=== PATIENT | male | born 1950 | race Caucasian/White ===

== ENCOUNTER 2017-04-10 12:21 | Inpatient (IN) | payer MEDICARE, BC ==
[~2017-04-10] VITALS: Ht 180.3 cm; Wt 131.1 kg
[~2017-04-10 12:21] MED LIST: ACET500; CIPR500; META800; OXYACE5T
[2017-04-10] MEDS ORDERED: WARF10 PO (15:09)
[2017-04-10] MEDS ORDERED: WARF5 PO (15:10)
[2017-04-10] MEDS ORDERED: Prozac20 MG PO (15:21)
[2017-04-10] MEDS ORDERED: CARV25 PO (15:22)
[2017-04-10] MEDS ORDERED: LISI20 PO (15:22)
[2017-04-10] MEDS ORDERED: FURO20 PO (15:22)
[2017-04-10] MEDS ORDERED: LOVA40 PO (15:22)
[2017-04-10] MEDS ORDERED: Hydrocodone-Ap1 EA20 PO (15:23)
[2017-04-10] MEDS ORDERED: Lisinopril2.5 MG PO (15:24)
[2017-04-10] MEDS ORDERED: SPIR25 PO (15:25)
[2017-04-10] MEDS ORDERED: ASPI81CH PO (15:25)
[2017-04-10] MEDS ORDERED: FINA5 PO (15:25)
[2017-04-10] MEDS ORDERED: Vitamin C100 M1 PO (15:26)
[2017-04-10] MEDS ORDERED: FISH OIL 1,2001 EAC4 PO (15:27)
[2017-04-10] MEDS ORDERED: VITAMIN B PO (15:28)
[2017-04-10] MEDS ORDERED: Hair, Skin & N1 EACH PO (15:28)
[2017-04-10] MEDS ORDERED: [UNRECOGNIZED DRUG - OTHER] PO (15:29)
[2017-04-10] MEDS ORDERED: Vitamin B Comple1 EA PO (15:29)
[2017-05-07] MEDS ORDERED: ENOX100I SC (11:47)
[2017-05-07 15:11] LABS: International Normalized Ratio 1.09; Prothrombin Time Results 11.4 Sec (9.7-11.5)
[2017-05-08 05:34] LABS: BASOPHILS ABSOLUTE AUTO 0.09 K/mm3 (0.00-0.23); BASOPHILS PERCENT AUTO 1 % (0-2); EOSINOPHILS ABSOLUTE AUTO 0.35 K/mm3 (0.00-0.68); EOSINOPHILS PERCENT AUTO 2 % (0-6); Hematocrit 33.5 % (37.0-53.0); Hemoglobin 10.8 g/dL (13.5-17.5); IMMATURE GRAN ABSOLUTE AUTO 0.09 K/mm3 (0.00-0.10); IMMATURE GRAN PERCENT AUTO 1 % (0-1); LYMPHOCYTES ABSOLUTE AUTO 1.54 K/mm3 (0.84-5.20); LYMPHOCYTES PERCENT AUTO 10 % (21-46); MONOCYTES ABSOLUTE AUTO 1.42 K/mm3 (0.16-1.47); MONOCYTES PERCENT AUTO 9 % (4-13); Mean Corpuscular HGB 31.6 pg (26.0-34.0); Mean Corpuscular HGB Conc 32.2 g/dL (31.5-36.5); Mean Corpuscular Volume 98 fL (80-100); Mean Platelet Volume 10.6 fL (9.1-12.4); NEUTROPHILS ABSOLUTE AUTO 12.28 K/mm3 (1.96-9.15); NEUTROPHILS PERCENT AUTO 78 % (41-73); Platelet Count 201 K/mm3 (150-400); RDW Coefficient Variation 12.6 % (11.7-14.2); Red Blood Cell Count 3.42 M/mm3 (4.30-5.90); White Blood Cell Count 15.77 K/mm3 (4.00-11.30)
[2017-05-08 05:48] LABS: International Normalized Ratio 1.09; Prothrombin Time Results 11.4 Sec (9.7-11.5)
[2017-05-08 05:50] LABS: Anion Gap 8 mmol/L (6-16); Blood Urea Nitrogen 17 mg/dL (8-24); CO2, Blood 29 mmol/L (21-32); Calcium, Blood 8.2 mg/dL (8.5-10.1); Chloride, Blood 103 mmol/L (98-108); Creatinine, Blood 0.85 mg/dL (0.60-1.20); Glomerular Filtration Rate >60 (60-); Glucose, Blood 102 mg/dL (70-99); Magnesium, Blood 1.9 mg/dL (1.6-2.4); Potassium, Blood 3.7 mmol/L (3.5-5.5); Sodium, Blood 140 mmol/L (136-145)
[2017-05-08] MEDS ORDERED: OXYC5 PO (14:55)
[2018-02-13] MEDS ORDERED: Prozac40 MG PO (11:14)
[2018-02-13] MEDS ORDERED: Multivitamin1 EAC1 PO (11:17)
== END 2017-05-08 15:27 | disposition home or self-care (01) | DRG 470 ==
LOC: SURS 05-07 11:03 → PRE IP 05-07 13:30 → SURS 05-07 15:14
PROVIDERS: Orthopaedic Surgery
PROC: 0SRC0J9 Replacement of Right Knee Joint with Synthetic Substitute, Cemented, Open Approach (ICD-10-PCS; principal; 2017-05-07 13:30)
DX: M17.11 Unilateral primary osteoarthritis, right knee (principal); E66.01 Morbid (severe) obesity due to excess calories; Z68.41 Body mass index [BMI] 40.0-44.9, adult; F17.210 Nicotine dependence, cigarettes, uncomplicated; Z79.01 Long term (current) use of anticoagulants; Z79.82 Long term (current) use of aspirin; Z79.899 Other long term (current) drug therapy
CPT/HCPCS: 36415; 73560-RT; 80048; 82565; 82947; 83735; 85025; 85610; 85730; 88300; 97110; 97116; 97161; 97530; C1713; C1776; G8978; G8979; J0171; J0690; J0735; J1170; J1650; J1885; J2250; J2795; J3010; J7120

== ENCOUNTER → 2018-08-04 | Outpatient (CLI) | payer MEDICARE, BC ==
[~2018-08-04] MED LIST changes: +ASPI81CH PO; +CARV25 PO; +ENOX100I SC; +FINA5 PO; +FISH OIL 1,2001 EAC4 PO; +FURO20 PO; +Hair, Skin & N1 EACH PO; +Hydrocodone-Ap1 EA20 PO; +LISI20 PO; +LOVA40 PO; +Lisinopril2.5 MG PO; +Multivitamin1 EAC1 PO; +OXYC5 PO; +Prozac20 MG PO; +Prozac40 MG PO; +SPIR25 PO; +VITAMIN B PO; +Vitamin B Comple1 EA PO; +Vitamin C100 M1 PO; +WARF10 PO; +WARF5 PO; +[UNRECOGNIZED DRUG - OTHER] PO
[2018-08-04 16:19] LABS: BASOPHILS ABSOLUTE AUTO 0.11 K/mm3 (0.00-0.23); BASOPHILS PERCENT AUTO 1 % (0-2); EOSINOPHILS ABSOLUTE AUTO 0.36 K/mm3 (0.00-0.68); EOSINOPHILS PERCENT AUTO 4 % (0-6); Hematocrit 45.3 % (37.0-53.0); Hemoglobin 14.4 g/dL (13.5-17.5); IMMATURE GRAN ABSOLUTE AUTO 0.07 K/mm3 (0.00-0.10); IMMATURE GRAN PERCENT AUTO 1 % (0-1); LYMPHOCYTES ABSOLUTE AUTO 1.71 K/mm3 (0.84-5.20); LYMPHOCYTES PERCENT AUTO 18 % (21-46); MONOCYTES PERCENT AUTO 6 % (4-13); Mean Corpuscular HGB 30.5 pg (26.0-34.0); Mean Corpuscular HGB Conc 31.8 g/dL (31.5-36.5); Mean Corpuscular Volume 96 fL (80-100); Mean Platelet Volume 10.3 fL (9.1-12.4); NEUTROPHILS ABSOLUTE AUTO 6.74 K/mm3 (1.96-9.15); NEUTROPHILS PERCENT AUTO 70 % (41-73); Platelet Count 228 K/mm3 (150-400); RDW Coefficient Variation 15.7 % (11.7-14.2); RDW Standard Deviation 55.4 fL (35.1-46.3); Red Blood Cell Count 4.72 M/mm3 (4.30-5.90); White Blood Cell Count 9.59 K/mm3 (4.00-11.30)
[2018-08-04 17:10] LABS: Anion Gap 4 mmol/L (6-16); Blood Urea Nitrogen 17 mg/dL (8-24); Bun/Creatinine Ratio 14.8 (12.0-20.0); CO2, Blood 35 mmol/L (21-32); Chloride, Blood 100 mmol/L (98-108); Creatinine, Blood 1.15 mg/dL (0.60-1.20); Glomerular Filtration Rate >60 (60-); Glucose, Blood 180 mg/dL (70-99); Magnesium, Blood 1.7 mg/dL (1.6-2.4); Potassium, Blood 4.3 mmol/L (3.5-5.5); Sodium, Blood 139 mmol/L (136-145)
[2018-08-04 18:19] LABS: International Normalized Ratio 2.84; Prothrombin Time Results 27.4 Sec (9.7-11.5)
== END | disposition home or self-care (01) ==
LOC: LAB EV 16:06 → LAB SHORT 16:06
PROVIDERS: Internal Medicine Cardiovascular Disease
DX: I48.4 Atypical atrial flutter (principal)
CPT/HCPCS: 80048; 83735; 85025; 85610

== ENCOUNTER 2018-08-05 06:54 | Day surgery (SDC) | payer MEDICARE, BC ==
[~2018-08-05] VITALS: Ht 182.9 cm; Wt 90.9 kg
== END 2018-08-05 10:30 | disposition home or self-care (01) ==
LOC: MHTC 06:54
DX: I48.4 Atypical atrial flutter (principal); I45.2 Bifascicular block; E11.51 Type 2 diabetes mellitus with diabetic peripheral angiopathy without gangrene; F17.210 Nicotine dependence, cigarettes, uncomplicated; Z86.718 Personal history of other venous thrombosis and embolism; Z79.899 Other long term (current) drug therapy; Z79.01 Long term (current) use of anticoagulants; Z79.82 Long term (current) use of aspirin
CPT/HCPCS: 92960; 93005; 93010; J0282; J2704; J7030

== ENCOUNTER → 2021-09-20 | Outpatient (CLI) | payer MEDICARE, BC | LOC: PLD 13:48 → LAB SHORT 13:48 | DX: D48.5 Neoplasm of uncertain behavior of skin (principal) | CPT/HCPCS: 88341; 88342 ==

== ENCOUNTER → 2023-05-25 | Outpatient (CLI) | payer MEDICARE, BC ==
[2023-05-25 15:02] LABS: BASOPHILS PERCENT AUTO 1 % (0-2); EOSINOPHILS ABSOLUTE AUTO 0.41 K/mm3 (0.00-0.68); EOSINOPHILS PERCENT AUTO 4 % (0-6); Hematocrit 44.3 % (37.0-53.0); IMMATURE GRAN ABSOLUTE AUTO 0.04 K/mm3 (0.00-0.10); IMMATURE GRAN PERCENT AUTO 0 % (0-1); LYMPHOCYTES ABSOLUTE AUTO 1.41 K/mm3 (0.84-5.20); LYMPHOCYTES PERCENT AUTO 13 % (21-46); MONOCYTES ABSOLUTE AUTO 1.14 K/mm3 (0.16-1.47); MONOCYTES PERCENT AUTO 11 % (4-13); Mean Corpuscular HGB 32.9 pg (26.0-34.0); Mean Corpuscular HGB Conc 31.6 g/dL (31.5-36.5); Mean Corpuscular Volume 104 fL (80-100); Mean Platelet Volume 10.5 fL (9.1-12.4); NEUTROPHILS ABSOLUTE AUTO 7.55 K/mm3 (1.96-9.15); NEUTROPHILS PERCENT AUTO 71 % (41-73); Platelet Count 199 K/mm3 (150-400); RDW Coefficient Variation 12.3 % (11.7-14.2); Red Blood Cell Count 4.26 M/mm3 (4.30-5.90); White Blood Cell Count 10.65 K/mm3 (4.00-11.30)
[2023-05-25 16:15] LABS: Albumin, Blood 3.5 g/dL (3.4-5.0); Albumin/Globulin Ratio 0.9 (0.8-1.8); Bilirubin, Total 0.4 mg/dL (0.1-1.0); Bun/Creatinine Ratio 21.5 (12.0-20.0); Calcium, Blood 9.3 mg/dL (8.5-10.1); Creatinine, Blood 0.74 mg/dL (0.60-1.20); Globulin, Blood 3.9 g/dL (2.2-4.0); Potassium, Blood 3.9 mmol/L (3.5-5.5); Thyroid Stimulating Hormone 1.88 uIU/mL (0.360-4.800); Total Protein, Blood 7.4 g/dL (6.4-8.2)
== END | disposition home or self-care (01) ==
LOC: LAB SHORT 14:22 → LAB 14:22
PROVIDERS: Internal Medicine
DX: E11.42 Type 2 diabetes mellitus with diabetic polyneuropathy (principal); I48.20 Chronic atrial fibrillation, unspecified
CPT/HCPCS: 36415; 36416; 80053; 83036; 84443; 85025; 85610

== ENCOUNTER 2024-01-01 17:29 | Emergency (ER) | payer MEDICARE, BC ==
[~2024-01-01] VITALS: Ht 188 cm; Wt 131.5 kg
[~2024-01-01 17:29] MED LIST changes: +ALBU2.5V5 INH; +BUPR150ER PO; +CEFP200 PO; +DULERA 200 MCG-13 GM INH; +Diltiazem ER60 MG PO; +ENOXAPARIN150 MG/1 M SC; +PRAZ1 PO; +PRED20 PO
[2024-01-01 18:43] LABS: BASOPHILS ABSOLUTE AUTO 0.09 K/mm3 (0.00-0.23); BASOPHILS PERCENT AUTO 1 % (0-2); EOSINOPHILS ABSOLUTE AUTO 0.47 K/mm3 (0.00-0.68); EOSINOPHILS PERCENT AUTO 5 % (0-6); Hematocrit 35.5 % (37.0-53.0); Hemoglobin 10.9 g/dL (13.5-17.5); IMMATURE GRAN ABSOLUTE AUTO 0.08 K/mm3 (0.00-0.10); IMMATURE GRAN PERCENT AUTO 1 % (0-1); LYMPHOCYTES ABSOLUTE AUTO 1.08 K/mm3 (0.84-5.20); LYMPHOCYTES PERCENT AUTO 11 % (21-46); MONOCYTES ABSOLUTE AUTO 0.94 K/mm3 (0.16-1.47); MONOCYTES PERCENT AUTO 9 % (4-13); Mean Corpuscular HGB 29.1 pg (26.0-34.0); Mean Corpuscular HGB Conc 30.7 g/dL (31.5-36.5); Mean Corpuscular Volume 95 fL (80-100); Mean Platelet Volume 10.2 fL (9.1-12.4); NEUTROPHILS ABSOLUTE AUTO 7.31 K/mm3 (1.96-9.15); NEUTROPHILS PERCENT AUTO 73 % (41-73); Platelet Count 257 K/mm3 (150-400); RDW Coefficient Variation 14.6 % (11.7-14.2); RDW Standard Deviation 51.3 fL (35.1-46.3); Red Blood Cell Count 3.74 M/mm3 (4.30-5.90); White Blood Cell Count 9.97 K/mm3 (4.00-11.30)
[2024-01-01 19:10] LABS: Albumin, Blood 3.1 g/dL (3.4-5.0); Albumin/Globulin Ratio 0.7 (0.8-1.8); Bilirubin, Total 0.4 mg/dL (0.1-1.0); Bun/Creatinine Ratio 20.3 (12.0-20.0); Calcium, Blood 8.8 mg/dL (8.5-10.1); Creatinine, Blood 0.89 mg/dL (0.60-1.20); Globulin, Blood 4.4 g/dL (2.2-4.0); Potassium, Blood 4.9 mmol/L (3.5-5.5); Total Protein, Blood 7.5 g/dL (6.4-8.2)
[2024-01-01 22:30] VITALS: BP 109/62
== END 2024-01-01 22:42 | disposition home or self-care (01) ==
LOC: ER 17:29
PROVIDERS: Emergency Medicine
DX: J96.11 Chronic respiratory failure with hypoxia (principal); E11.40 Type 2 diabetes mellitus with diabetic neuropathy, unspecified; J44.9 Chronic obstructive pulmonary disease, unspecified; F43.10 Post-traumatic stress disorder, unspecified; I48.91 Unspecified atrial fibrillation; Z99.81 Dependence on supplemental oxygen; Z86.79 Personal history of other diseases of the circulatory system; Z79.82 Long term (current) use of aspirin; Z79.01 Long term (current) use of anticoagulants; Z79.52 Long term (current) use of systemic steroids; Z79.899 Other long term (current) drug therapy
CPT/HCPCS: 71046; 80053; 83880; 84484; 85025; 93005; 93010; 99285-25

== ENCOUNTER → 2025-03-10 | Outpatient (CLI) | payer MEDICARE, BC ==
[2025-03-11 04:19] LABS: Creatinine, Urine Random 61.4 mg/dL (27.00-270.00); Microalb/Creat Ratio UR, Rand 104.56 mg/g (0.000-30.000); Microalbumin, Random Urine 64.2 mg/L (0.000-20.000)
== END | disposition home or self-care (01) ==
LOC: LAB SHORT 14:10 → LAB 14:10
PROVIDERS: Internal Medicine
DX: E11.42 Type 2 diabetes mellitus with diabetic polyneuropathy (principal)
CPT/HCPCS: 82043; 82570

== ENCOUNTER 2025-03-28 12:06 | Inpatient (IN) | payer MEDICARE, BC ==
[~2025-03-28] VITALS: Ht 188 cm; Wt 134.8 kg
[2025-03-28] MEDS ORDERED: Morphine Sulfate 4 MG/1 ML Injection IV ONE (12:55)
[2025-03-28] MEDS ORDERED: Ondansetron HCl 2 MG / ML 2ML Vial IV ONE (12:55)
[2025-03-28 13:21] LABS: BASOPHILS ABSOLUTE AUTO 0.08 K/mm3 (0.00-0.23); BASOPHILS PERCENT AUTO 1 % (0-2); EOSINOPHILS ABSOLUTE AUTO 0.05 K/mm3 (0.00-0.68); EOSINOPHILS PERCENT AUTO 0 % (0-6); Hematocrit 28.4 % (37.0-53.0); Hemoglobin 8.4 g/dL (13.5-17.5); IMMATURE GRAN ABSOLUTE AUTO 0.12 K/mm3 (0.00-0.10); IMMATURE GRAN PERCENT AUTO 1 % (0-1); LYMPHOCYTES ABSOLUTE AUTO 0.75 K/mm3 (0.84-5.20); LYMPHOCYTES PERCENT AUTO 6 % (21-46); MONOCYTES ABSOLUTE AUTO 0.99 K/mm3 (0.16-1.47); MONOCYTES PERCENT AUTO 7 % (4-13); Mean Corpuscular HGB Conc 29.6 g/dL (31.5-36.5); Mean Corpuscular Volume 89 fL (80-100); NEUTROPHILS ABSOLUTE AUTO 11.72 K/mm3 (1.96-9.15); NEUTROPHILS PERCENT AUTO 85 % (41-73); NRBC ABSOLUTE 0.00 K/mm3 (0.00-0.02); NRBC Auto 0.0 /100 WBC (0.0-0.2); Platelet Count 211 K/mm3 (150-400); RDW Coefficient Variation 16.5 % (11.7-14.2); RDW Standard Deviation 53.3 fL (35.1-46.3)
[2025-03-28 13:30] LABS: Prothrombin Time Results 27.1 Sec (9.7-11.5)
[2025-03-28 13:41] LABS: Alanine Aminotransfer (ALT/SGP 15.0 U/L (12-78); Albumin, Blood 3.2 g/dL (3.4-5.0); Albumin/Globulin Ratio 0.8 (0.8-1.8); Anion Gap 6.0 mmol/L (3-11); Aspartate Aminotrans (AST/SGOT 21.0 U/L (12-37); Bilirubin, Total 0.6 mg/dL (0.1-1.0); Blood Urea Nitrogen 17.0 mg/dL (8-24); CO2, Blood 36.0 mmol/L (21-32); Calcium, Blood 8.7 mg/dL (8.5-10.1); Chloride, Blood 95.0 mmol/L (98-108); Creatinine, Blood 0.81 mg/dL (0.60-1.20); Globulin, Blood 3.8 g/dL (2.2-4.0); Glucose, Blood 115.0 mg/dL (70-99); Potassium, Blood 3.6 mmol/L (3.5-5.5); Sodium, Blood 133.0 mmol/L (136-145); Total Protein, Blood 7.0 g/dL (6.4-8.2)
[2025-03-28] MEDS ORDERED: HYDROmorphone HCl/Pf 1MG SYR IV ONE ×2 (14:55→19:40)
[2025-03-28] MEDS ORDERED: LORazepam 2 MG/ML 1ML Injection IV ONE (16:15)
[2025-03-28 17:13] LABS: Source, Urine Voided
[2025-03-28 17:16] LABS: Bilirubin, Urine Neg (Neg); Color, Urine Yellow (P-Yellow); Glucose Qualitative, Urine 3+ (Neg); Ketones, Urine 1+ (Neg); Leukocyte Esterase, Urine Neg (Neg); Protein, Urine 2+ (Neg); Specific Gravity, Urine 1.020 (1.003-1.022); Urobilinogen, Urine NORM (Normal)
[2025-03-28 17:22] LABS: Red Blood Cells, Urine 0-2 /hpf (0-2); White Blood Cells, Urine 0-2 /hpf (0-5)
[2025-03-28] MEDS ORDERED: Ketamine HCl 100 MG / ML 5ML Vial IV ONE (18:20)
[2025-03-28] MEDS ORDERED: HYDROmorphone HCl/Pf 1MG SYR IV PRN ×2 (22:15→23:30)
[2025-03-28] MEDS ORDERED: Ketorolac Tromethamine 30mg Vial IV PRN (23:25)
[2025-03-28] MEDS ORDERED: Ipratropium/Albuterol SulF 2.5-0.5MG/3 ML Amp INH PRN (23:25)
[2025-03-28] MEDS ORDERED: Ondansetron HCl 2 MG / ML 2ML Vial IV PRN (23:25)
[2025-03-28] MEDS ORDERED: FentaNYL Citrate 50 MCG/ML 2 ML Injection IV PRN (23:30)
[2025-03-28] MEDS ORDERED: FLU VACC TS2025(65UP)/MF59C/PF 45 MCG/0.5 ML SYRINGE IM SCH (23:30)
[2025-03-28 23:57] LABS: Magnesium, Blood 2.3 mg/dL (1.6-2.4); Phosphorus, Blood 3.2 mg/dL (2.5-4.9)
[2025-03-29] VITALS (8 sets, daily range): BP systolic 103–139; BP diastolic 63–95
[2025-03-29] MEDS ORDERED: Dexamethasone Sodium Phosphate 4 MG/ML 5ML VIAL IV ONE
[2025-03-29 00:11] LABS: Prothrombin Time Results 29.8 Sec (9.7-11.5)
[2025-03-29] MEDS ORDERED: Dexamethasone Sod Phos 10 MG/ML 1ML VIAL IV ONE (00:15)
[2025-03-29] MEDS ORDERED: BEVESPI AEROS10.7 G1 UD (01:43)
[2025-03-29] MEDS ORDERED: DAPAGLIFLOZIN10 MG PO (01:45)
[2025-03-29] MEDS ORDERED: KETO15TC TOP (01:47)
[2025-03-29] MEDS ORDERED: Norco 10-325 T1 EACH PO (01:47)
[2025-03-29] MEDS ORDERED: OXYM.05NI (01:48)
[2025-03-29] MEDS ORDERED: NASONEX 24HR AL17 ML (01:50)
[2025-03-29] MEDS ORDERED: OMEP20ER PO (01:51)
[2025-03-29] MEDS ORDERED: TORSE20 PO (01:52)
[2025-03-29 04:21] LABS: BASOPHILS ABSOLUTE AUTO 0.05 K/mm3 (0.00-0.23); BASOPHILS PERCENT AUTO 0 % (0-2); EOSINOPHILS ABSOLUTE AUTO 0.02 K/mm3 (0.00-0.68); EOSINOPHILS PERCENT AUTO 0 % (0-6); Hematocrit 28.5 % (37.0-53.0); Hemoglobin 8.3 g/dL (13.5-17.5); IMMATURE GRAN ABSOLUTE AUTO 0.22 K/mm3 (0.00-0.10); IMMATURE GRAN PERCENT AUTO 2 % (0-1); LYMPHOCYTES ABSOLUTE AUTO 0.72 K/mm3 (0.84-5.20); LYMPHOCYTES PERCENT AUTO 5 % (21-46); MONOCYTES ABSOLUTE AUTO 0.99 K/mm3 (0.16-1.47); MONOCYTES PERCENT AUTO 7 % (4-13); Mean Corpuscular HGB Conc 29.1 g/dL (31.5-36.5); Mean Corpuscular Volume 89 fL (80-100); NEUTROPHILS ABSOLUTE AUTO 13.11 K/mm3 (1.96-9.15); NEUTROPHILS PERCENT AUTO 87 % (41-73); NRBC ABSOLUTE 0.04 K/mm3 (0.00-0.02); NRBC Auto 0.3 /100 WBC (0.0-0.2); Platelet Count 215 K/mm3 (150-400); RDW Coefficient Variation 16.6 % (11.7-14.2); RDW Standard Deviation 53.6 fL (35.1-46.3)
--- NOTE | 2025-03-29 05:37 | NUR ---
SHIFT SUMMARY PT ARRIVED TO PCU AROUND 49. PT SLID FROM [facility] TO PCU BED. PT ALERT, ORIENTED X3-4. HE IS ABLE TO MAKE NEEDS KNOWN. 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 PT HR IN THE 110'S-120'S, AFIB. HE DENIES ANY CP/PRESSURE, NUMB/TINGLING, SBP STABLE. PT ON 5L VIA NC, PER PT 5L IS BL FOR HIM. L/S DIM T/O. HE DOES GET SOB WITH EXERTION. PT USING URINAL IN BED. PT HAS COMPRESSION STOCKINGS ON BLE'S. HE HAS SOME PITTING EDME BILAT. PT C/O BACK PAIN FOR THE LAST FEW WEEKS, MEDICATING PT PER EMAR. ONCOLOGY CONSULT IN PLACE. PT SITTING UP IN BED AT THIS TIME. CALL LIGHT IN REACH. WILL MONITOR PT AND REPORT TO ONCOMING RN.
[2025-03-29 06:03] LABS: Alanine Aminotransfer (ALT/SGP 14.0 U/L (12-78); Albumin, Blood 3.3 g/dL (3.4-5.0); Albumin/Globulin Ratio 0.8 (0.8-1.8); Anion Gap 9.0 mmol/L (3-11); Aspartate Aminotrans (AST/SGOT 19.0 U/L (12-37); Bilirubin, Total 0.5 mg/dL (0.1-1.0); Blood Urea Nitrogen 18.0 mg/dL (8-24); CO2, Blood 33.0 mmol/L (21-32); Calcium, Blood 8.7 mg/dL (8.5-10.1); Chloride, Blood 96.0 mmol/L (98-108); Creatinine, Blood 0.83 mg/dL (0.60-1.20); Globulin, Blood 4.0 g/dL (2.2-4.0); Glucose, Blood 134.0 mg/dL (70-99); Potassium, Blood 3.8 mmol/L (3.5-5.5); Sodium, Blood 134.0 mmol/L (136-145); Total Protein, Blood 7.3 g/dL (6.4-8.2)
[2025-03-29] MEDS ORDERED: HYDROcodone 5-APAP 325 TAB PO PRN (06:30)
[2025-03-29] MEDS ORDERED: Albuterol 2.5 MG/3 ML VIAL INH PRN (06:40)
[2025-03-29] MEDS ORDERED: Insulin Human Lispro 100 Units/ML 3ML Syringe SC SCH (07:30)
[2025-03-29 08:35] LABS: Prothrombin Time Results 32.1 Sec (9.7-11.5)
[2025-03-29] MEDS ORDERED: Dexamethasone Sod Phos 10 MG/ML 1ML VIAL IV SCH (09:00)
[2025-03-29] MEDS ORDERED: Fluticasone 0.05% Nasal Spray SCH (09:00)
[2025-03-29] MEDS ORDERED: Torsemide 20 MG TAB PO SCH (09:00)
[2025-03-29] MEDS ORDERED: OxyCODONE 5 mg/Acetamin 325 mg TABLET PO PRN (12:20)
--- NOTE | 2025-03-29 17:20 | NUR ---
PT TRANSFERRED FROM PCU 7 TO MEDICAL FLOOR RM 335 VIA HOSPITAL BED. PT ALERT AND ORIENTED X4, ON 4L NC-BASELINE IS 5LNC AT HOME. PT IS [place]-BILATERAL HEARING AIDS WITH PATIENT, WEARS GLASSES, USES 4 WHEELWALKER AT HOME. 1P-2P PIVOT TRANSFER TO BSC OR ASSISTANCE TO STAND AT BEDSIDE TO USE URINAL. ACHS CHECKS, PAIN TOLERABLE AT THIS TIME-PT IS COMFORTABLE. AT BEDSIDE, BED ALARM ON, CALL LIGHT IN REACH.
--- NOTE | 2025-03-29 17:49 | NUR ---
SHIFT SUMMARY / TRANSFER TO [facility] PT A&Ox4, CALLS AND COMMUNICATES NEEDS APPROPRIATELY, VERY [place] EVEN WITH HEARING AIDS. 1 ASSIST WITH FWW FROM BED TO CHAIR. PT CANNOT TOLERATE LAYING FLAT AT ALL, ITS VERY PAINFUL, PT BECOMES VERY SOB, AND RESTLESS. MANAGED PT's SEVERE BACK PAIN PER EMAR. BP STABLE, AFIB 70-100's, DENIES CP/PRESSURE. SpO2> 92% 4L VIA NC, 5L BASELINE, REPORTS INTERMITTENT SOB. IN/CONTIENT OF URINE, USES URINAL AT BEDSIDE. NO BM THIS SHIFT. AT BEDSIDE AND EXTENSIVELY UPDATE ABOUT PLAN OF CARE. AT BEDSIDE AT TIME OF TRANSFER. REPORT GIVEN TO MEDICAL FLOOR RN, PT TRANSFERED VIA HOSPITAL BED WITH ALL BELONGINGS.
[2025-03-30] VITALS (8 sets, daily range): BP systolic 102–120; BP diastolic 64–82
[2025-03-30 05:11] LABS: BASOPHILS ABSOLUTE AUTO 0.03 K/mm3 (0.00-0.23); BASOPHILS PERCENT AUTO 0 % (0-2); EOSINOPHILS ABSOLUTE AUTO 0.00 K/mm3 (0.00-0.68); EOSINOPHILS PERCENT AUTO 0 % (0-6); Hematocrit 28.5 % (37.0-53.0); Hemoglobin 8.1 g/dL (13.5-17.5); IMMATURE GRAN ABSOLUTE AUTO 0.15 K/mm3 (0.00-0.10); IMMATURE GRAN PERCENT AUTO 1 % (0-1); LYMPHOCYTES ABSOLUTE AUTO 0.65 K/mm3 (0.84-5.20); LYMPHOCYTES PERCENT AUTO 4 % (21-46); MONOCYTES ABSOLUTE AUTO 0.81 K/mm3 (0.16-1.47); MONOCYTES PERCENT AUTO 6 % (4-13); Mean Corpuscular HGB Conc 28.4 g/dL (31.5-36.5); Mean Corpuscular Volume 91 fL (80-100); NEUTROPHILS ABSOLUTE AUTO 13.17 K/mm3 (1.96-9.15); NEUTROPHILS PERCENT AUTO 89 % (41-73); NRBC ABSOLUTE 0.03 K/mm3 (0.00-0.02); NRBC Auto 0.2 /100 WBC (0.0-0.2); Platelet Count 213 K/mm3 (150-400); RDW Coefficient Variation 16.5 % (11.7-14.2); RDW Standard Deviation 54.9 fL (35.1-46.3)
--- NOTE | 2025-03-30 05:13 | NUR ---
PT WAS AWAKE WHEN RECEIVED. DENIED CHEST PAIN, N/V, DIZZINESS AND HEACHED. REPORTED HAVING AN [place] SLEEP/APPETIE. COMPLIED WITH SCHEDULED MEDS AND PRN FOR PAIN AND NUB TREATMENT WERE GIVEN DURING THE SHIFT. CALL DIANA WITHIN THE REACH, HOURLY ROUND IS IMPLEMENTED. CURRENTLY, PT IS RESTING IN BED, NO DISTRESS AND ACUTE CHANGES NOTED.
[2025-03-30 05:23] LABS: Prothrombin Time Results 34.8 Sec (9.7-11.5)
[2025-03-30 05:32] LABS: Alanine Aminotransfer (ALT/SGP 15 U/L (12-78); Albumin, Blood 3.2 g/dL (3.4-5.0); Albumin/Globulin Ratio 0.8 (0.8-1.8); Anion Gap 9 mmol/L (3-11); Aspartate Aminotrans (AST/SGOT 17 U/L (12-37); Bilirubin, Total 0.4 mg/dL (0.1-1.0); Blood Urea Nitrogen 34 mg/dL (8-24); CO2, Blood 34 mmol/L (21-32); Calcium, Blood 8.2 mg/dL (8.5-10.1); Chloride, Blood 96 mmol/L (98-108); Creatinine, Blood 1.07 mg/dL (0.60-1.20); Globulin, Blood 4.0 g/dL (2.2-4.0); Glucose, Blood 143 mg/dL (70-99); Potassium, Blood 4.3 mmol/L (3.5-5.5); Prostate Specific Antigen <0.010 ng/mL (0.000-4.000); Sodium, Blood 135 mmol/L (136-145); Total Protein, Blood 7.2 g/dL (6.4-8.2)
[2025-03-30 05:55] LABS: Alpha Feto Protein, Tumor Mkr 1.9 ng/mL (0.0-8.0)
[2025-03-30 05:58] LABS: Carcinoembryonic Antigen >10000.0 ng/mL (0.0-3.0)
--- NOTE | 2025-03-30 11:22 | NUR ---
CONSULT RECEIVED AND REVIEWED. POA ON FILE NAMES IRAM SEAN POA. NO POLST/AD ON FILE. POLST ON FILE WITH [facility]. STATES DNR SLECTIVE. PT IS CURRENTLY DNR CODE STATUS. SENT POLST TO MEDICAL RECORDS AND PLACED COPY ON CHART.
[2025-03-30] MEDS ORDERED: OxyCODONE 10/Acetamin 325 TABLET PO SCH (16:00)
[2025-03-30] MEDS ORDERED: Saline Nasal Spray 45 ML PRN (16:00)
--- NOTE | 2025-03-30 16:46 | NUR ---
PALLIATIVE CARE VISIT: MET WITH PT AND IRAM IN ROOM. PT AGREEABLE TO VISIT TO DISCUSS SYMPTOM MANAGEMENT AND GOC. HE IS ABLE TO HAVE MEANINGFUL CONVERSATION AND MAKE NEEDS KNOWN. GOC: PT WISHES TO HAVE BIOPSY DONE SO HE CAN MEET WITH ONCOLOGY TO DISCUSS TREATMENT OPTIONS. PT IS OPEN TO HOSPICE CARE IF TREATMENT IS NOT AN OPTION. PT WOULD APPRECIATE OUTPATIENT FOLLOW-UP WITH PALLIATIVE CARE WITH PATSYGRSALAZAR. PAIN MANAGEMENT IS A PRIORITY. HE ALSO WANTS HIS SOB MANAGED BETTER. SYMPTOM MANAGEMENT: PT REPORTS PAIN IS 8-9/10 ALL THE TIME. PAIN IS LOVATED IN LOWER BACK AND STABBING. HE ALSO REPORTS CHRONIC PAIN TO SHOULDERS AND KNEES FROM PRIOR INJURIES. PT MANAGED HIS PAIN AT HOME WITH VICODIN 5 MG PO QID. PT REPORTS PAIN INCREASED TO LOWER BACK 2 WEEKS AGO AND WAS NO LONGER MANAGED WITH VICODIN. PT STATES HE USES COLD THERAPY AT HOME WITH GOOD RESULTS. REVIEWED MEDICATION MANAGEMENT. PT IS GETTING OXYCODONE 5 MG TABS, 2 TABS TWICE DAILY WITH IV DILAUDID 1 MG AND IV FENTANYL 50 MCG GIVEN FOR BREAKTHROUGH PAIN. PT HAS ALSO HAD TORADOL. PT STATES PAIN HAS NOT BEEN MANAGED WITH IV NARCOTICS. PT ALSO C/O SINUS/NASAL CONGESTION. HE THINKS THIS IS WORSENING HIS SOB. HE USES SALINE NASAL SPRAY AT HOME FOR CONGESTION WITH GOOD RESULT. PT ALSO HAD SPIRONOLACTONE AND TORSEMIDE DOSE HELD DUE TO LOW BP THIS AM. PT LEGS ARE QUITE SWOLLEN. PT HAS [facility] ON. SPOKE TO DR. GOMEZ ABOUT CONCERNS. HE WAS AGREEABLE TO ORDERS: SALINE SPRAY NEEDED, PT ABLE TO HAVE AT BEDSIDE TO SELF ADMINISTER ROXANOL 5 MG SL Q8 PRN FOR SEVERE SOB COLD THERAPY, ON/OFF 20 MINUTES TO LOWER BACK PERCOCET 10 MG PO SCHEDULED Q6 HOURS PARAMETERS TO SPIRONOLACTONE: HOLD FOR SBP LESS THAN 100 PARAMETERS TO COREG: HOLD FOR SBP LESS THAN 100 OR HR LESS THAN 60. PLACED ORDERS REQUESTED. ALSO PROVIDED FAN FOR SOB. SET UP COLD THERAPY FOR PT AND EDUCATED PT ON NEW PAIN MEDICATION REGIMEN. PT V/U.
--- NOTE | 2025-03-30 18:24 | NUR ---
PT ALERT AND ORIENTED, [place], 4L NC-BASELINE AT HOME 5L, PO/IV PAIN MEDICATIONS TO ASSIST WITH ACUTE BACK PAIN. TRIALED PT TODAY TO SEE IF ABLE TO TOLERATE LATERAL POSITION FOR LIVER BIOPSY, DISPITE BEING MEDICATED PT DID NOT TOLERATE HOB TO LESS THAN 35 DEGREES AND WAS ONLY ABLE TO STAY ON LATERAL SIDE FOR APPROX. 3 MIN. C/O DISCOMFORT LYING IN LATERAL POSITION AND ALSO BECOMES SOB, DID DESAT TO 87% BUT WITHIN SECONDS RECOVERED TO ABOVE 95%. BED ALARM ON, AT BEDSIDE, CALL LIGHT IN REACH.
[2025-03-31 04:53] VITALS: BP 150/92
--- NOTE | 2025-03-31 05:34 | NUR ---
PT WAS UP, SITTING IN BED WHEN RECEIVED. HE EXPRESSED HE WAS HAVING A COUPLE OF EPISODES OF EXTREME SOB DURING THE PREVIOUS SHIFT. OVER NIGHT, HIS SAT DROPPED MID 70S AND CALLED RT FOR RELIEF, BUT ONLY HELPED LITTEL FOR SHORT PERIOD OF TIME. BLADDER SCAN WAS DONE, TO R/O FLUID OVERLOAD AND FIRST TIME WAS 324 AND SECODNE TIME WAS 428. NOTIFIED DR. LAM AND WAS INSTRUCTED TO PUT AN ORDER TO STRAIGHT CATH AND DO THE BLADDER KITCHEN Q 6HR. PT IS CURRENTY SITTING IN BED AND RESTING.
[2025-03-31 05:58] LABS: BASOPHILS ABSOLUTE AUTO 0.01 K/mm3 (0.00-0.23); BASOPHILS PERCENT AUTO 0 % (0-2); EOSINOPHILS ABSOLUTE AUTO 0.00 K/mm3 (0.00-0.68); EOSINOPHILS PERCENT AUTO 0 % (0-6); Hematocrit 28.5 % (37.0-53.0); Hemoglobin 8.1 g/dL (13.5-17.5); IMMATURE GRAN ABSOLUTE AUTO 0.12 K/mm3 (0.00-0.10); IMMATURE GRAN PERCENT AUTO 1 % (0-1); LYMPHOCYTES ABSOLUTE AUTO 0.66 K/mm3 (0.84-5.20); LYMPHOCYTES PERCENT AUTO 4 % (21-46); MONOCYTES ABSOLUTE AUTO 0.91 K/mm3 (0.16-1.47); MONOCYTES PERCENT AUTO 6 % (4-13); Mean Corpuscular HGB Conc 28.4 g/dL (31.5-36.5); Mean Corpuscular Volume 90 fL (80-100); NEUTROPHILS ABSOLUTE AUTO 13.80 K/mm3 (1.96-9.15); NEUTROPHILS PERCENT AUTO 89 % (41-73); NRBC ABSOLUTE 0.02 K/mm3 (0.00-0.02); NRBC Auto 0.1 /100 WBC (0.0-0.2); Platelet Count 236 K/mm3 (150-400); RDW Coefficient Variation 16.7 % (11.7-14.2); RDW Standard Deviation 54.7 fL (35.1-46.3)
[2025-03-31] MEDS ORDERED: FentaNYL Citrate 50 MCG/ML 2 ML Injection IV ONE (06:20)
[2025-03-31 06:22] LABS: Prothrombin Time Results 22.8 Sec (9.7-11.5)
--- NOTE | 2025-03-31 06:22 | NUR ---
PT WAS EXPERIENCING SOB MULTIPLE TIMES OVER NIGHT. A COUPLE OF TIMES, THE SATURATION WAS 80S BUT AT 0400, HE DESAT TO 70S. HAD THE PATIENT SIT ON THE SIDE OF THE BED, INCREASDE THE OXYGEN TO 5L AND CALLED THE RT. PT'S STATUS IMPROVED BIT BUT NOT MUCH. THIS RN TRIED TO BLADDER SCAN AND THE AMOUNT WAS 428, SITTING DOWN IN BED. NOTIFIED DR. LINDA AND RECEIVED VERBAL ORDERS TO STRAIGHT CATH HIM AND DO THE BLADDER SCAN Q6HRS. THE BLADDER SCAN AMOUNT WAS 625ML AND THE PROVIDER WAS NOTIFIED. SOON AFTER, HE CME TO THE UNIT AND SAW THE PT AND INSTRUCTED THIS RN TO PUT AN ORDER FOR FENTANYL 50MCG IVP ONE TIME. PT IS NOW RESTING NOW AND WILL CONTINUE TO MONITOR AND ENDORSE TO DAY SHIFT ON THE STATUS.
[2025-03-31 06:24] LABS: Alanine Aminotransfer (ALT/SGP 18.0 U/L (12-78); Albumin, Blood 3.3 g/dL (3.4-5.0); Albumin/Globulin Ratio 0.9 (0.8-1.8); Anion Gap 8.0 mmol/L (3-11); Aspartate Aminotrans (AST/SGOT 16.0 U/L (12-37); Bilirubin, Total 0.4 mg/dL (0.1-1.0); Blood Urea Nitrogen 56.0 mg/dL (8-24); CO2, Blood 35.0 mmol/L (21-32); Calcium, Blood 8.3 mg/dL (8.5-10.1); Chloride, Blood 96.0 mmol/L (98-108); Creatinine, Blood 1.3 mg/dL (0.60-1.20); Globulin, Blood 3.7 g/dL (2.2-4.0); Glucose, Blood 146.0 mg/dL (70-99); Potassium, Blood 3.9 mmol/L (3.5-5.5); Sodium, Blood 135.0 mmol/L (136-145); Total Protein, Blood 7.0 g/dL (6.4-8.2)
[2025-03-31 07:13] VITALS: BP 119/71
[2025-03-31] MEDS ORDERED: Enoxaparin 120 MG/0.8 ML SYR SC SCH (09:00)
[2025-03-31 11:43] VITALS: BP 114/88
--- NOTE | 2025-03-31 13:52 | NUR ---
PALLIATIVE CARE VISIT: MET WITH PT AND IRAM TO DISCUSS PAIN MANAGEMENT. PT IS UP TO CHAIR TODAY, NO SOB NOTED. PT REPORTS PAIN HAS NOT CHANGED. HOWEVER, PRIMARY RN REPORTS PT ABLE TO GET TO BEDSIDE AND INTO CHAIR TODAY AND COULD NOT YESTERDAY. PT REPORTS HE STILL HAS SHARP STABBING PAIN THAT STARTS ABOUT 2 HOURS AFTER PAIN MEDICATIONS HAVE BEEN GIVEN. PT UNABLE TO TOLERATE THE SHARP STABBING PAIN. PT REPORTS SYMPTOMS OF DYSPNEA MUCH BETTER TODAY. DISCUSSED CODE STATUS WITH PT DUE TO PRIMARY RN REPORTING PT WANTED CPR WITH NO INTUBATION. DISCUSSED THAT POLST DOES NOT SUPPORT THIS INTERVENTION AND IF CPR INITIATED THEN PT WOULD LIKELY NEED INTUBATION. EDUCATED ON RISKS VS BENEFITS OF CPR, ALONG WITH PT CO-MORBIDITIES. EDUCATED PT ON WHAT MECHANICAL VENTILATION IS AND HOW LONG IT IS PROVIDED. RECOMMENDED ADVANCE DIRECTIVE TO BE COMPLETED. GAVE COPY TO IRAM. PT ULTIMATELY DECIDED HE WANTS TO BE A FULL CODE. CALLED DR. GOMEZ AND RECOMMENDED GABAPENTIN. DR. GOMEZ ORDERED GABAPENTIN 100 MG PO TID FOR PAIN. DR. GOMEZ AGREEABLE TO FULL CODE. PLACED ORDERS REQUESTED.
[2025-03-31 15:39] VITALS: BP 146/52
--- NOTE | 2025-03-31 18:26 | NUR ---
PT ALERT AND ORIENTED X3, STATES FEELS CONFUSED THIS EVENING- "I DON'T KNOW WHAT I AM DOING OR HOW TO LOOK UP CHANNELS ON TV- AT HOME I CAN SEE AND CHOOSE WHAT I WANT TO VIEW". AFTER CLARIFYING PT STATES HE DOES NOT HAVE A TV GUIDE. PAIN MEDICATIONS ADJUSTED TODAY AND GABAPENTIN ADDED FOR PAIN-PER PT THIS HAS HELPED, THIS RN ALSO INCREASED DILAUDID DOSE TO 1MG TO 2MG- PT RATES PAIN NOW 09/16. INDEWLLING CATHERTER INSERTED FOR STRICT I&O'S AND DUE TO RETENTION-NO DIFFICULTY WITH INSERTION. PT C/O SOB AND DOES NOT TOLERATE LAYING LESS THAN 45 DEGREES. CONTINUES TO BE ON 4LNC SATS GREATER THAN 95%. TELE AFIB HR LOW 80'S AND UPTO 140'S WITH ACTIVITY. PT TRANSFER TO RECLINER CHAIR 1P FWW. AT BEDSIDE, BED ALARM ON, CALL LIGHT IN REACH.
[2025-03-31 19:20] VITALS: BP 111/62
[2025-04-01] VITALS (7 sets, daily range): BP systolic 103–132; BP diastolic 69–92
--- NOTE | 2025-04-01 04:43 | NUR ---
SHIFT SUMMARY PT ALERT AND ORIENTED AT BEGINNING OF SHIFT. COOPERATIVE WITH CARES. ABLE TO MAKE NEEDS KNOWN. VERY HARD OF HEARING, BETTER ON THE L SIDE. BEGINNING OF SHIFT PT WAS C/O SIGNIFICANT DRYNESS TO HIS NARES FROM NC, RESULTING IN HIM PERSISTENTLY TAKING NC OFF. WITHOUT OXYGEN, PT WILL DESAT INTO THE 70'S. PROVIDED PT WITH LUBRICATING JELLY AND PLACED HIM ON A SIMPLE MASK. BLEEDING EVENTUALLY STOPPED ONCE PT STOPPED PICKING AT HIS NARES. ON 4L (BASELINE), SATTING BETWEEN 94%-100% WHEN OXYGEN IS ON. TELEMETRY, READING AFIB. L WRIST PIV. RODRIGUES CATHETER IN PLACE DRAINING RED URING TO GRAVITY. STRICT I&O. CONSISTENT CARB DIET. ACHS. VERY PAINFUL, MEDICATED PER MAR WITH OXYCODONE, DILAUDID & FENTANYL. PT MUCH MORE CONFUSED THROUGHOUT THE NIGHT. WAS TRYING TO CLIMB OUT OF THE END OF BED, GOING TO THE SNOW. WHEN ASKED WHAT HE IS TALKING ABOUT HE ACKNOWLEDGES THAT HE IS CONFUSED AND BECOMES VERY APOLOGETIC. AT BEDSIDE THROUGHOUT THE NIGHT. VERY INVOLVED IN CARE. BED IN LOWEST POSITION. CALL LIGHT IN REACH. BED ALARM ARMED.
--- NOTE | 2025-04-01 05:15 | NUR ---
SHIFT SUMMARY PT ALERT AND ORIENTED. ABLE TO MAKE NEEDS KNOWN. R BKA STUMP DRESSING CHANGED 03/31 WITH XEROFORM, EDUDRY & KERLEX. WOUND WAS MOIST WITH A SMALL OUT OF WHITE/YELLOW PURULENT DISCHARGE. NO ODOR NOTICED. TELE SHOWED [address] ELEVATION THROUGHT SHIFT. PT ASYMPTOMATIC. NOTIFIED, ADVISED NO TX UNLESS SYMPTOMATIC. AROUND 0500 SPOKE WITH WEATHER STRIPPER AND ADVISED TO OBTAIN EKG. ORDER PLACED TO COMPLETE. MEPILEX IN PLACE TO RIGHT FLANK FOR PREVIOUS BLISTER AND TO COCCYX. PUREWICK IN PLACE. PT HAS SIGNIFICANT REDNESS TO PANNUS/GROIN AREA. AREA WAS CLEANSED, ANTIFUNGAL POWDER AND ROPER ANTIBICROBIAL CLOTH APPLIED. MEDS TAKEN WITH APPLESAUCE. BED IN LOWEST POSITION. CALL LIGHT IN REACH.
[2025-04-01 05:25] LABS: BASOPHILS ABSOLUTE AUTO 0.01 K/mm3 (0.00-0.23); BASOPHILS PERCENT AUTO 0 % (0-2); EOSINOPHILS ABSOLUTE AUTO 0.01 K/mm3 (0.00-0.68); EOSINOPHILS PERCENT AUTO 0 % (0-6); Hematocrit 29.6 % (37.0-53.0); Hemoglobin 8.4 g/dL (13.5-17.5); IMMATURE GRAN ABSOLUTE AUTO 0.14 K/mm3 (0.00-0.10); IMMATURE GRAN PERCENT AUTO 1 % (0-1); LYMPHOCYTES ABSOLUTE AUTO 0.72 K/mm3 (0.84-5.20); LYMPHOCYTES PERCENT AUTO 5 % (21-46); MONOCYTES ABSOLUTE AUTO 0.96 K/mm3 (0.16-1.47); MONOCYTES PERCENT AUTO 7 % (4-13); Mean Corpuscular HGB Conc 28.4 g/dL (31.5-36.5); Mean Corpuscular Volume 90 fL (80-100); NEUTROPHILS ABSOLUTE AUTO 12.50 K/mm3 (1.96-9.15); NEUTROPHILS PERCENT AUTO 87 % (41-73); NRBC ABSOLUTE 0.02 K/mm3 (0.00-0.02); NRBC Auto 0.1 /100 WBC (0.0-0.2); Platelet Count 254 K/mm3 (150-400); RDW Coefficient Variation 16.8 % (11.7-14.2); RDW Standard Deviation 55.0 fL (35.1-46.3)
[2025-04-01 05:34] LABS: Prothrombin Time Results 20.3 Sec (9.7-11.5)
[2025-04-01 05:39] LABS: Alanine Aminotransfer (ALT/SGP 27.0 U/L (12-78); Albumin, Blood 3.5 g/dL (3.4-5.0); Albumin/Globulin Ratio 0.9 (0.8-1.8); Anion Gap 7.0 mmol/L (3-11); Aspartate Aminotrans (AST/SGOT 33.0 U/L (12-37); Bilirubin, Total 0.5 mg/dL (0.1-1.0); Blood Urea Nitrogen 60.0 mg/dL (8-24); CO2, Blood 37.0 mmol/L (21-32); Calcium, Blood 8.0 mg/dL (8.5-10.1); Chloride, Blood 96.0 mmol/L (98-108); Creatinine, Blood 1.2 mg/dL (0.60-1.20); Globulin, Blood 3.8 g/dL (2.2-4.0); Glucose, Blood 148.0 mg/dL (70-99); Potassium, Blood 4.2 mmol/L (3.5-5.5); Sodium, Blood 136.0 mmol/L (136-145); Total Protein, Blood 7.3 g/dL (6.4-8.2)
[2025-04-01] MEDS ORDERED: Polyethylene Glycol 3350 17 gm PO SCH (12:10)
--- NOTE | 2025-04-01 16:54 | NUR ---
SHIFT SUMMARY PT AOX4, COOPERATIVE, ABLE TO MAKE NEEDS KNOWN. PT IS VERY [place], CONTINENT OF BOWEL (THOUGH HAS NOT HAD BM IN 3 DAYS, BOWEL MEDS ACTIVE), RODRIGUES CATHETER INTACT AND DRAINING PINK URINE. TOLERATING MEDICATIONS. PT IS 2 PERSON ASSSIT TO USE COMMODE. ON APPROX 4L O2 CURRENTLY. FENTANYL PATCH PLACED LOWER BACK. MEDICATING FOR PAIN PER EMAR WHENEVER AVAILABLE. PT SUPPOSED TO BE NPO AFTER MIDNIGHT 04/02/25 FOR PROCEDURE ONE 04/03/25, WILL PASS OFF IN REPORT AND MAKE NURSING NOTIFICATION. BED IN LOWEST POSITION, CALL LIGHT WITHIN REACH.
--- NOTE | 2025-04-02 00:21 | NUR ---
PATIENT CONFUSED AND ANXIOUS WITH A R.S. NOSE BLEED FROM DAY SHIFT. DAY RN PLACED COTTON AND PATIENT WOULD PULL OUT PER REPORT. NIGHT ORDINARY SEAMAN KARO SAID TO PLACE TAMPOON AND ANOTHER RN PLACED. PATIENT PULLS OUT AT TIMES AND IS REPLACED. SPOUSE STAYS IN ROOM OVERNIGHT TO ASSIST. PEEWEE.
[2025-04-02] MEDS ORDERED: Oxymetazoline 0.05% Nasal Relief Spray 15mL BTL ONE (03:00)
[2025-04-02] MEDS ORDERED: Oxymetazoline 0.05% Nasal Relief Spray 15mL BTL PRN (03:00)
[2025-04-02 03:51] VITALS: BP 98/60
--- NOTE | 2025-04-02 03:57 | NUR ---
RIGHT SIDE EPISTAXIS EVENT STILL ON/OFF WITH PATIENT CONFUSED AND PULLING OUT TAMPON. DR WATTS NOTIFIED AND ORDERED AFRIN SPRAY X ONE AND BID. GIVEN AND BLEEDING HAS STOPPED AT THIS POINT. ON 4L O2 VIA MASK. PATIENT ON LOVENOX AND ASPIRIN. SPOUSE STAYING IN ROOM OVERNIGHT. WCTM.
--- NOTE | 2025-04-02 04:33 | NUR ---
SHIFT SUMMARY PATIENT EPISTAXIS EVENTS SLOWLY RESOLVED AT THIS TIME WITH AFRIN NASAL SPRAY ORDERED BY HOSPITALIST DR WATTS. ON 4L O2 VIA MASK. AXOX 2 WITH CONFUSION PULLING MASK OFF, AND PULLING TAMPON OUT OF RS NOSE. DENIES CHEST PAIN AND N/V. SCHEDULE PERCOCET. CBG 177. PIV INTACT. RODRIGUES PATENT AND DRAINING TO GRAVITY. CALL LIGHT IN REACH. BED IN LOWEST POSITION. WILL CONTINUE TO MONITOR UNTIL DAY SHIFT NURSE ASSUMES CARE.
--- NOTE | 2025-04-02 06:18 | NUR ---
PATIENT CONFUSED WITH MULTIPLE OUT OF BED ATTEMPTS ACTIVATING BED ALARM. THREE PERSON ASSIST FROM SIDE OF BED BACK INTO BED. COMBATIVE DURING PULLING BACK AND UP INTO BED. YELLING OUT. SPOUSE PRESENT AND TRIES TO REDIRECT PATIENT BUT HE WON'T LISTEN TO HER EITHER. BED ALARM ON. WCTM.
[2025-04-02 07:41] VITALS: BP 140/115
[2025-04-02 09:40] LABS: BASOPHILS ABSOLUTE AUTO 0.03 K/mm3 (0.00-0.23); BASOPHILS PERCENT AUTO 0 % (0-2); EOSINOPHILS ABSOLUTE AUTO 0.00 K/mm3 (0.00-0.68); EOSINOPHILS PERCENT AUTO 0 % (0-6); Hematocrit 28.8 % (37.0-53.0); Hemoglobin 8.2 g/dL (13.5-17.5); IMMATURE GRAN ABSOLUTE AUTO 0.47 K/mm3 (0.00-0.10); IMMATURE GRAN PERCENT AUTO 2 % (0-1); LYMPHOCYTES ABSOLUTE AUTO 0.93 K/mm3 (0.84-5.20); LYMPHOCYTES PERCENT AUTO 5 % (21-46); MONOCYTES ABSOLUTE AUTO 1.86 K/mm3 (0.16-1.47); MONOCYTES PERCENT AUTO 10 % (4-13); Mean Corpuscular HGB Conc 28.5 g/dL (31.5-36.5); Mean Corpuscular Volume 91 fL (80-100); NEUTROPHILS ABSOLUTE AUTO 16.04 K/mm3 (1.96-9.15); NEUTROPHILS PERCENT AUTO 83 % (41-73); NRBC ABSOLUTE 0.05 K/mm3 (0.00-0.02); NRBC Auto 0.3 /100 WBC (0.0-0.2); Platelet Count 271 K/mm3 (150-400); RDW Coefficient Variation 16.8 % (11.7-14.2); RDW Standard Deviation 55.9 fL (35.1-46.3)
[2025-04-02 09:57] LABS: Prothrombin Time Results 18.9 Sec (9.7-11.5)
[2025-04-02 10:03] LABS: Alanine Aminotransfer (ALT/SGP 45.0 U/L (12-78); Albumin, Blood 3.3 g/dL (3.4-5.0); Albumin/Globulin Ratio 0.9 (0.8-1.8); Anion Gap 11.0 mmol/L (3-11); Aspartate Aminotrans (AST/SGOT 34.0 U/L (12-37); Bilirubin, Total 0.6 mg/dL (0.1-1.0); Blood Urea Nitrogen 77.0 mg/dL (8-24); CO2, Blood 36.0 mmol/L (21-32); Calcium, Blood 7.9 mg/dL (8.5-10.1); Chloride, Blood 96.0 mmol/L (98-108); Creatinine, Blood 1.51 mg/dL (0.60-1.20); Globulin, Blood 3.7 g/dL (2.2-4.0); Glucose, Blood 184.0 mg/dL (70-99); Potassium, Blood 4.7 mmol/L (3.5-5.5); Sodium, Blood 138.0 mmol/L (136-145); Total Protein, Blood 7.0 g/dL (6.4-8.2)
--- NOTE | 2025-04-02 10:32 | NUR ---
0800 PATIENT WITH INCREASED WOB AND CRACKLES THROUGHOUT, COPS RN REPORTED PATIENT NOSE BLEEDING PERFUSELY FROM THE RIGHT NARE, CONCERNS FOR ASPIRATION. CALLED DR. GOMEZ WHO ADVISED I PUT IN A STAT CXR.
--- NOTE | 2025-04-02 10:34 | NUR ---
0900 PATIENT A&OX1-2. HE KNOWS HIS NAME AND WHO HIS IS. PATIENT IS HAVING HALLUCINATIONS. RIGHT NARE CONTINUES TO BLEED, THIS RN ADMINISTERED THE AFRIN PRESCRIBED FOR THIS ISSUE, EPISTAXIS CONTINUES, SOAKING 2 GOWNS. PATIENT IS PULLING HIS OXYGEN MASK OFF, SUPPOSED TO BE ON 4 LITERS. REPLACED MASK REPEATEDLY UNTIL PATIENT RELAXED WITH IT ON.
--- NOTE | 2025-04-02 10:37 | NUR ---
0930 DR. GOMEZ AT HE BEDSIDE, EPISTAXIS PERFUSE. DR. GOMEZ PLACED A RHINO ROCKET INFLATED WITH 6CC OF AIR. PATIENT DESAT TO 70'S DUE TO PULLING MASK OFF. MASK WAS HELD OVER PATIENT MOUTH, INCREASED O2 TO 8L UNTIL SATURATION STABLE >90%. DR. GOMEZ ADVISED THIS RN TO REMOVE THE FENTANYL PATCH ON PATIENTS BACK, PATCH PROMPTLY REMOVED.
--- NOTE | 2025-04-02 10:39 | NUR ---
1000 PATIENT PULLED THE RHINO ROCKET. AND IT WAS REPLACED BY BONDS. SOFT RESTRAINTS PLACED ON BL UE.
[2025-04-02] MEDS ORDERED: Piperacillin/Tazobactam Sod 4.5 GM in NS 100 ML IV SCH (12:00)
--- NOTE | 2025-04-02 12:34 | NUR ---
1202 TRANSFERRED PATIENT BY CART WITH ALL OF THIS BELONGINGS, CARRIED MOST BELONGINGS, TO PCU ROOM 8, HAND OFF TO NURSE OLGA LIDIA.
[2025-04-02 16:21] VITALS: BP 121/90
--- NOTE | 2025-04-02 17:16 | NUR ---
TRANSFER FROM [facility] / SHIFT SUMMARY PT ARRIVED AT APPROXIMATELY 1205 VIA HOSPITAL BED, AT BEDSIDE. BEDBATH / LINEN CHANGE DONE UPON ARRIVAL. RHINO ROCKET IN PLACE, BLEEDING SUBSIDED. SpO2> 92% 5L VIA OXYMASK, DENIES SOB. PT RESPONDING TO VERBAL STIMULI, A&Ox3, FORGETFUL OF LIMITATIONS AND VERY DROWSY. VERY [place]. PT ARRIVED IN BILAT SWR D/T PULLING OUT RHINO ROCKET. PT REMAINED BEDREST D/T MENTATION AND BLEEDING, PT CANNOT TOLERATE LAYING FLAT AT ALL, ITS VERY PAINFUL, PT BECOMES VERY SOB, AND RESTLESS. Q2 TURNS DONE TOLERATED. MANAGED PT's SEVERE BACK PAIN PER EMAR. BP STABLE, AFIB 70-100's, DENIES CP/PRESSURE. SpO2> 92% 4L VIA NC, 5L BASELINE, REPORTS INTERMITTENT SOB. RODRIGUES IN PLACE, PATENT DRAINING PINK/TOMÁS URINE TO GRAVITY. RHINO ROCKET REMOVED WNL AND NO BLEEDING SINCE. BILAT SWR OFF AT THIS TIME. NO OTHER EVENTS, WILL REPORT TO ONCOMING RN.
[2025-04-02 19:43] VITALS: BP 127/73
[2025-04-02] MEDS ORDERED: NS 250 ML IV PRN (23:05)
[2025-04-02 23:46] VITALS: BP 109/70
[2025-04-03 04:10] LABS: BASOPHILS ABSOLUTE AUTO 0.04 K/mm3 (0.00-0.23); BASOPHILS PERCENT AUTO 0 % (0-2); EOSINOPHILS ABSOLUTE AUTO 0.01 K/mm3 (0.00-0.68); EOSINOPHILS PERCENT AUTO 0 % (0-6); Hematocrit 27.5 % (37.0-53.0); Hemoglobin 7.8 g/dL (13.5-17.5); IMMATURE GRAN ABSOLUTE AUTO 0.54 K/mm3 (0.00-0.10); IMMATURE GRAN PERCENT AUTO 3 % (0-1); LYMPHOCYTES ABSOLUTE AUTO 1.05 K/mm3 (0.84-5.20); LYMPHOCYTES PERCENT AUTO 6 % (21-46); MONOCYTES ABSOLUTE AUTO 1.13 K/mm3 (0.16-1.47); MONOCYTES PERCENT AUTO 7 % (4-13); Mean Corpuscular HGB Conc 28.4 g/dL (31.5-36.5); Mean Corpuscular Volume 92 fL (80-100); NEUTROPHILS ABSOLUTE AUTO 14.06 K/mm3 (1.96-9.15); NEUTROPHILS PERCENT AUTO 84 % (41-73); NRBC ABSOLUTE 0.24 K/mm3 (0.00-0.02); NRBC Auto 1.4 /100 WBC (0.0-0.2); Platelet Count 237 K/mm3 (150-400); RDW Coefficient Variation 16.9 % (11.7-14.2); RDW Standard Deviation 56.1 fL (35.1-46.3)
[2025-04-03 04:20] VITALS: BP 132/79
[2025-04-03 04:25] LABS: Prothrombin Time Results 17.8 Sec (9.7-11.5)
[2025-04-03 04:38] LABS: Alanine Aminotransfer (ALT/SGP 51.0 U/L (12-78); Albumin, Blood 3.4 g/dL (3.4-5.0); Albumin/Globulin Ratio 0.9 (0.8-1.8); Anion Gap 8.0 mmol/L (3-11); Aspartate Aminotrans (AST/SGOT 43.0 U/L (12-37); Bilirubin, Total 0.7 mg/dL (0.1-1.0); Blood Urea Nitrogen 81.0 mg/dL (8-24); CO2, Blood 39.0 mmol/L (21-32); Calcium, Blood 7.8 mg/dL (8.5-10.1); Chloride, Blood 99.0 mmol/L (98-108); Creatinine, Blood 1.56 mg/dL (0.60-1.20); Globulin, Blood 3.6 g/dL (2.2-4.0); Glucose, Blood 162.0 mg/dL (70-99); Potassium, Blood 4.8 mmol/L (3.5-5.5); Sodium, Blood 141.0 mmol/L (136-145); Total Protein, Blood 7.0 g/dL (6.4-8.2)
--- NOTE | 2025-04-03 05:30 | NUR ---
SHIFT SUMMARY PT CONFUSED, IMPULSIVE, AND INCREASINGLY AGITATED DURING THE NIGHT. WITH AGITATION, PT WITH INCREASED RESPIRATORY RATE AND WORK OF BREATHING. ORDER RECEIVED FOR ZYPREXA WITH PT NOW RESTING WITH EYES CLOSED. PT MEDICATED FOR PAIN PER EMAR. NPO AFTER MIDNIGHT, EXCEPT FOR MEDICATIONS FOR POSSIBLE LIVER BIOPSY TODAY. PT TURNED AND REPOSITIONED DURING THE NIGHT- DOES NOT TOLERATE LYING FLAT OR WITH THE HEAD OF BED LOWERED. PT CONTINENT OF STOOL X1 AND INCONT X2. RODRIGUES DRAINING TOMÁS COLORED URINE. SCAB TO BACK OF RIGHT CALF OPENED WITH ACTIVE BLEEDING- MEPELEX PLACED, BUT ROLLED OFF WITH PT MOVEMENT WITH CONTINUED ACTIVE BLEEDING. CESRA GAUZE APPLIED WITH GAUZE AND ASHTYN TO KEEP DRESSING IN PLACE. NO MORE ACTIVE BLEEDING AT THIS SITE. MEPELEX INTACT TO LOWER RIGHT CALF AND RIGHT ARM SCAB SITES. PT SLEPT INITERMITTENTLY DURING THE NIGHT. AT BEDSIDE.
[2025-04-03 09:27] VITALS: BP 130/86
--- NOTE | 2025-04-03 14:21 | NUR ---
PT HAD A PLAN FOR LIVER BIOPSY TODAY- US TECH DID THE PRE-US PRIOR TO THE PROCEDURE. ORDER CANCELLED BY RADIOLOGY. SPOKE TO DR MEJÍA. HE IS AWARE THE ORDER WAS CANCELLED. SPOKE TO ABOUT THE PT PAIN MANAGEMENT, IS HIGH LEVEL OF CONFUSION AND AGGITATION REQUIRING PO ZYPREXA LAST NIGHT. THE SPOUSE IS AT THE BEDSIDE. PT MEDICATED WITH PO OXY SCHEDULED, AND PRN DILAUDID. CAME IN AND SPOKE TO THE PT SPOUSE ABOUT SWITCHING THE FOCUS OF HIS TREATMENT TO PAIN MANAGEMENT, SHE IS AGREEABLE TO HOSPICE AND COMFORT CARE MEASURES. CODE STATUS CHANGED TO DNR. PT WAS PROVIDED AND AIR MATRESS, GIANNA CARE PROVIDED, MEPILEX PLACED ON HIS BOTTOM, LEFT CHEEK HAS A SMALL SPOT 1/2 A DIME IN SIZE THAT IS OPEN, MORE LIKELY SHEER FROM PT MOVEMENT THAN FROM PRESSURE. AFTER THE REPOSITION, HE WAS MEDICATED WITH PERCOCET, THEN DILAUDID, ROXINOL FOR AIR HUNGER, PILLOWS WERE PLACED UNDER THE PT KNEES TO TRY TO OFFLOAD PRESSURE FROM THE LOW SPINE, THAT SEEMS TO HAVE HELPED. ROM EXERCISES COMPLETED IN BLE. PT SEEMS RELAXED AT THIS TIME, DRIFTING IN AND OUT OF SLEEP, NO CURRENT S&S OF DISTRESS NOTED. TELE DC'D.
--- NOTE | 2025-04-03 15:41 | NUR ---
CALLED DR MEJÍA- PT HAS NOT REQUIRED INSULIN VERY OFTEN, HE IS ON LOW CC HUMALOG. PT HAS BEEN IN PAIN MOST OF THE DAY SINCE HE WOKE AFTER ZYPREXA DOSE. MEDICATED WITH OXY, DILAUDID, ROXANOL AND WAS GOING TO ADMINISTER FENTANYL, BUT HE WAS FINALLY RELAXED AND BREATHING EASILY, WITH NO S&S OF DISTRESS O2 100% ON 3L, REDUCED O2 TO 2L AND DID NOT GIVE THE FENTANYL (WASTED THE DOSE WITH ADDITIONAL RN). CALLED DR MEJÍA THE PT HAS A BG CHECK DUE SOON, HE IS RESTING COMFORTABLY FOR THE FIRST TIME TODAY. HAD STATED EARLIER HE WAS CONSULTING PALLIATIVE CARE AND THE PT WOULD BE MADE CC AND DC ON HOSPICE SUNDAY. HE SPOKE TO THE EARLIER AND SHE IS AGREEABLE WITH HOSPICE AT DC AND TREATING HIS PAIN WHILE HERE. NO CURRENT CC ORDER. CALLED MD TO DETERMINE IF BG CHECKS ARE STILL NEEDED. ORDER RECIEVED TO DC THE PT INSULIBN AND BG CHECKS. THIS WAS DONE THROUGH ORDER MANAGEMENT.
--- NOTE | 2025-04-03 16:59 | NUR ---
Met with pt and in room. Pt slept through conversation. Plan was set in motion for pt to go home on hospice on Sunday. We discussed comfort care so pt symptoms of pain can be managed better. Greg wants to talk to pt daughter before making this decisions. She stated she would talk to her in the morning. Updated primary RN.
[2025-04-03 17:41] VITALS: BP 145/86
--- NOTE | 2025-04-03 18:39 | NUR ---
SHIFT SUMMARY- PT HAS BEEN EXTREMELY CONFUSED AND AGGITATED, UNABLE TO COMMUNICATE HIS NEEDS. HIS STAYS AT THE BEDSIDE VERY FREQUENTLY. SPOKE TO DR MEJÍA ABOUT CHANGING SOME OF THE MEDS THE CONFUSION IS GETTING WORSE, MEDS WERE CHANGED. PLAN WAS FOR THE PT TO START CC AND DC HOME ON HOSPICE. PALLIATIVE CARE RN MET WITH THE PT SPOUSE TO TALK ABOUT CC AND SHE SAID SHE WANTS TO TALK TO THE PT DAUGHTER FIRST PRIOR TO PLACING HIM ON COMFORT MEASURES. HIS WAS ENCOURAGED TO HAVE A CONVERSATION WITH THE PT DAUGHTER AND ENCOURAGE HER TO COME SEE HIM A LITTLE SOONER THAN SUNDAY HIS CONDITION AT THIS TIME IS POOR. PALLIATIVE CARE RN OFFERED TO CONTACT THE DAUGHTER AND THE SPOUSE DECLINED ANS STATED SHE WILL TALK TO HER. SPOUSE LEFT THE BEDSIDE TO GO SHOW SOMEONE HOW TO CARE FOR THEIR KITTIES, STAFF WOKE THE PT FOR MED ADMINISTRATION AND REPOSITION, HE STARTED COMMUNICATING WITH STAFF IN FULL SCENTENCES, ASKING MEANINGFULL QUESTIONS, HE SAYS THE WRONG WORDS, AND HE GETS SOB WITH TALKING. HE IS VERY WATER OBSESSIVE, IF HE HAS A CUP HE DRINKS EVERY DROP IN SECONDS, TO DECREASE PO INTAKE ICE CHIPS WERE PROVIDED.
[2025-04-03 19:41] VITALS: BP 113/67
[2025-04-03 23:15] VITALS: BP 109/67
[2025-04-04 04:04] VITALS: BP 104/78
[2025-04-04 04:06] LABS: BASOPHILS ABSOLUTE AUTO 0.02 K/mm3 (0.00-0.23); BASOPHILS PERCENT AUTO 0 % (0-2); EOSINOPHILS ABSOLUTE AUTO 0.00 K/mm3 (0.00-0.68); EOSINOPHILS PERCENT AUTO 0 % (0-6); Hematocrit 26.4 % (37.0-53.0); Hemoglobin 7.5 g/dL (13.5-17.5); IMMATURE GRAN ABSOLUTE AUTO 0.28 K/mm3 (0.00-0.10); IMMATURE GRAN PERCENT AUTO 2 % (0-1); LYMPHOCYTES ABSOLUTE AUTO 0.94 K/mm3 (0.84-5.20); LYMPHOCYTES PERCENT AUTO 6 % (21-46); MONOCYTES ABSOLUTE AUTO 1.61 K/mm3 (0.16-1.47); MONOCYTES PERCENT AUTO 10 % (4-13); Mean Corpuscular HGB Conc 28.4 g/dL (31.5-36.5); Mean Corpuscular Volume 91 fL (80-100); NEUTROPHILS ABSOLUTE AUTO 13.90 K/mm3 (1.96-9.15); NEUTROPHILS PERCENT AUTO 83 % (41-73); NRBC ABSOLUTE 0.24 K/mm3 (0.00-0.02); NRBC Auto 1.4 /100 WBC (0.0-0.2); Platelet Count 224 K/mm3 (150-400); RDW Coefficient Variation 17.3 % (11.7-14.2); RDW Standard Deviation 57.0 fL (35.1-46.3)
[2025-04-04 04:36] LABS: Alanine Aminotransfer (ALT/SGP 47.0 U/L (12-78); Albumin, Blood 3.2 g/dL (3.4-5.0); Albumin/Globulin Ratio 1.0 (0.8-1.8); Anion Gap 6.0 mmol/L (3-11); Aspartate Aminotrans (AST/SGOT 44.0 U/L (12-37); Bilirubin, Total 0.9 mg/dL (0.1-1.0); Blood Urea Nitrogen 67.0 mg/dL (8-24); CO2, Blood 41.0 mmol/L (21-32); Calcium, Blood 8.0 mg/dL (8.5-10.1); Chloride, Blood 101.0 mmol/L (98-108); Creatinine, Blood 1.37 mg/dL (0.60-1.20); Globulin, Blood 3.3 g/dL (2.2-4.0); Glucose, Blood 147.0 mg/dL (70-99); Potassium, Blood 4.5 mmol/L (3.5-5.5); Sodium, Blood 143.0 mmol/L (136-145); Total Protein, Blood 6.5 g/dL (6.4-8.2)
--- NOTE | 2025-04-04 05:59 | NUR ---
SHIFT SUMMARY: PT WAS IRRITABLE MOST OF THE ENTIRE SHIFT. HE WOULD CALL HIS WHO WAS STAYING IN THE ROOM THE WHOLE SHIFT AND WOULD TAKE OUT HIS FACEMASK AT TIMES. PT WAS FORGETFUL AND ALSO HELPED IN REMINDING THE PT NOT TO TAKE OFF HIS FACEMASK. A WARMER WAS PLACED ON THE PT'S BACK. A LEAKAGE FROM THE RODRIGUES WAS NOTED. REMOVED THE OLD RODRIGUES AND A MALE PUREWICK WAS PLACED PT WAS ALREADY VOIDING WHILE THIS RN WAS CLEANING HIS URETHRA. MORNING PILLS WAS ATTEMPTED TO BE GIVEN TO THE PT BUT HE WAS NOT COOPERATIVE. WILL ENDORSE TO NEXT NURSE ON DUTY.
[2025-04-04 07:39] VITALS: BP 134/87
[2025-04-04] MEDS ORDERED: Morphine Sulfate 20 MG/1ML 1 ML Oral Syringe PO PRN (09:45)
[2025-04-04] MEDS ORDERED: Atropine Sulfate 1% Opth Soln 2ML BTL SL PRN (11:00)
--- NOTE | 2025-04-04 11:07 | NUR ---
ROUNDED ON PATIENT AND HIS IRAM. SHE IS PLANNING ON A SUNDAY HOSPICE DISCHARGE. PATIENT APPEARS UNCOMFORTABLE. HIS RESPIRATIONS ARE UNEVEN AND LABORED. WE DISCUSSED DIFFERENCE BETWEEN PALLIATIVE CARE, HOSPICE, AND COMFORT CARE. PATIENTS SPOUSE IF FAMILIAR WITH HOSPICE SHE WAS A TAX COMMISSIONER. WE DISCUSSED CHANGES IN MEDICATIONS AND SHIFTING FOCUS TO COMFORT. SHE IS AGREEABLE TO THIS CHANGE
--- NOTE | 2025-04-04 12:17 | NUR ---
INITIAL ASSESSMENT PT IN BED, AT THE BEDSIDE DURING SHIFT REPORT. CURRENTLY DISCUSSING HOSPICE AT DISCHARGE WITH POTENTIAL COMFORT CARE UNTIL DC. PT APPEARS COMFORTABLE AT THIS TIME, RESTING IN BED, RESPONDS TO VERBAL STIMULI BUT NOT VERBALLY. HE TURNS TO LOOK AT THE PERSON TALKING, WHEN ASKING YES/NO QUESTIONS HE IS ABLE TO NOD HIS HEAD A LITTLE TO INDICATE HIS ANSWER. SOME BRUISING NOTED TO HIS LOW ABDOMEN POTENTIALLY FROM LOVENOX INJECTIONS. PUREWICK IN PLACE WITH YELLOW URING IN THE DRAINAGE CANISTER. HE IS AUDIBLY WET THOUGH THIS IS MOSTLY IN HIS UPPER AIRWAYS, LS DIMINISHED WITH SOME FAINT COARSE CRACKLES T/O. OXY MASK IN PLACE WITH NC AT THE BEDSIDE, PT IS NOTED TO TAKE THIS OFF FROM TIME TO TIME AND DESATES WHEN HE DOES. RECOVERY IS SLOW BUT DOES GO A BIT FASTER WHEN OXYGEN IS BUMPED UP TO COMPENSATE. TITRATING BETWEEN 2L AND 6L.
== END 2025-04-04 18:52 | disposition hospice, home (50) | DRG 435 ==
LOC: ER 12:06 → PCU 12:07 → MEDS 03-29 13:04 → PCU 03-29 13:20 → MEDS 03-29 17:16 → PCU 04-02 11:59
PROVIDERS: Emergency Medicine; Family Medicine; ADMIT Internal Medicine
PROC: 093K7ZZ Control Bleeding in Nasal Mucosa and Soft Tissue, Via Natural or Artificial Opening (ICD-10-PCS; principal; 2025-04-02)
PROC: 3E03329 Introduction of Other Anti-infective into Peripheral Vein, Percutaneous Approach (ICD-10-PCS; 2025-04-02)
PROC: 3E02340 Introduction of Influenza Vaccine into Muscle, Percutaneous Approach (ICD-10-PCS; 2025-04-02)
DX: C22.8 Malignant neoplasm of liver, primary, unspecified as to type (principal); J96.21 Acute and chronic respiratory failure with hypoxia; C41.2 Malignant neoplasm of vertebral column; J44.1 Chronic obstructive pulmonary disease with (acute) exacerbation; N17.9 Acute kidney failure, unspecified; C17.2 Malignant neoplasm of ileum; I25.10 Atherosclerotic heart disease of native coronary artery without angina pectoris; F17.210 Nicotine dependence, cigarettes, uncomplicated; Z51.5 Encounter for palliative care; Z66 Do not resuscitate; R53.81 Other malaise; D64.9 Anemia, unspecified; E11.51 Type 2 diabetes mellitus with diabetic peripheral angiopathy without gangrene; F43.12 Post-traumatic stress disorder, chronic; I48.91 Unspecified atrial fibrillation; I50.9 Heart failure, unspecified; G89.29 Other chronic pain; E11.40 Type 2 diabetes mellitus with diabetic neuropathy, unspecified; K59.03 Drug induced constipation; T40.2X5A Adverse effect of other opioids, initial encounter; R41.0 Disorientation, unspecified; R45.1 Restlessness and agitation; R04.0 Epistaxis; R79.1 Abnormal coagulation profile; M54.50 Low back pain, unspecified; R33.8 Other retention of urine; Z90.89 Acquired absence of other organs; Z23 Encounter for immunization; Z98.890 Other specified postprocedural states; Z79.899 Other long term (current) drug therapy; Z79.891 Long term (current) use of opiate analgesic; Z79.01 Long term (current) use of anticoagulants; Z79.51 Long term (current) use of inhaled steroids; Z90.79 Acquired absence of other genital organ(s); Z79.82 Long term (current) use of aspirin; Z95.2 Presence of prosthetic heart valve; Z90.49 Acquired absence of other specified parts of digestive tract
CPT/HCPCS: 36415; 71045; 74177; 76705; 80053; 81001; 82105; 82378; 82947; 82977; 83735; 83880; 84100; 84153; 85025; 85610; 86301; 94640; 94664; 94760; 94762; 96374-59; 96375; 96376; 97110; 97161; 97530; 99285-25; A9270; G0378; J1100; J1171; J1650; J1790; J1885; J2060; J2270; J2405; J2543; J3010; J7050; Q9967